=== PATIENT | male | born 1945 | race African-American/Black ===

== ENCOUNTER 2017-11-24 09:25 | Outpatient (CLI) | payer MEDICARE ==
--- NOTE | 2017-11-24 11:49 | ULT ---
HEPATIC ULTRASOUND: COMPARISON: 04/21/07. HISTORY: Sclerosis. TECHNIQUE: Multiplanar, leger scale, and color Doppler images were obtained in a right upper quadrant abdominal u ltrasound. Spectral analysis of the Doppler waveforms and hepatic and splenic vessels were performed . FINDINGS: The liver is nodular and cirrhotic without focal lesions. There is a small amount of fluid adjacent to the liver. No intrahepatic biliary dilatation is seen. Normal directional flow is seen within th e portal veins, hepatic artery, and left hepatic vein. Normal directional flow is seen within the sp lenic vasculature. Gallstones are seen in the gallbladder. There is no gallbladder wall thickening or pericholecystic f luid. The common bile duct is normal measuring 4 mm. The spleen is normal in echogenicity without focal lesion and measures 13.6 cm in length. The visual ized portions of the pancreas are unremarkable. The right kidney is not visualized on this exam. IMPRESSION: 1. Cirrhosis and small ascites. 2. Cholelithiasis. POS: [facility]
== END 2017-11-24 09:26 | disposition home or self-care (01) ==
LOC: EDSEX → ULT 09:25
PROVIDERS: ATTEND Internal Medicine Gastroenterology
DX: K74.60 Unspecified cirrhosis of liver (principal); K70.31 Alcoholic cirrhosis of liver with ascites; K80.20 Calculus of gallbladder without cholecystitis without obstruction
CPT/HCPCS: 76705

== ENCOUNTER 2018-07-07 14:00 | Day surgery (SDC) | payer MEDICARE ==
[2018-07-07] MEDS ORDERED: Fentanyl 100 MCG/2 ML VIAL ONE (14:22)
--- NOTE | 2018-07-07 20:22 | OP ---
DATE OF PROCEDURE: 07/07/2018 PROCEDURE PERFORMED: Esophagogastroduodenoscopy. PREOPERATIVE DIAGNOSIS: Esophageal varices surveillance. PROCEDURE IN DETAIL: Informed consent was obtained from the patient. She was sedated with total int ravenous anesthesia. The bite block was placed and the endoscope was advanced easily to the second p ortion of the duodenum and retroflexion was performed in the stomach. The esophagus had 3 columns of small grade I varices without red signs. There was a small 1-2 cm hiatal hernia present. There was mild portal hypertensive gastropathy in the fundus. The remainder of the stomach was normal. The d uodenum, first and second portions were normal and the pylorus was normal. IMPRESSION: 1. Small grade I varices without red signs, 3 columns. 2. Mild portal hypertensive gastropathy in the fundus. 3. Small 1-2 cm hiatal hernia. 4. Otherwise normal esophagogastroduodenoscopy. RECOMMENDATIONS: 1. Repeat EGD in a year for varices surveillance. 2. Follow up in GI clinic.
== END 2018-07-07 15:35 | disposition home or self-care (01) ==
LOC: SDC 14:00
PROVIDERS: ATTEND Internal Medicine Gastroenterology
PROC: 0DJ08ZZ Inspection of Upper Intestinal Tract, Via Natural or Artificial Opening Endoscopic (ICD-10-PCS; principal; 2018-07-07)
DX: K76.6 Portal hypertension (principal); K31.89 Other diseases of stomach and duodenum; K74.60 Unspecified cirrhosis of liver; I85.10 Secondary esophageal varices without bleeding; K44.9 Diaphragmatic hernia without obstruction or gangrene; I25.10 Atherosclerotic heart disease of native coronary artery without angina pectoris; N18.9 Chronic kidney disease, unspecified; Z79.4 Long term (current) use of insulin; Z79.899 Other long term (current) drug therapy
CPT/HCPCS: J3010

== ENCOUNTER 2018-09-04 09:09 | Outpatient (CLI) | payer MEDICARE ==
[2018-09-04 10:03] LABS: INR-International Normal Ratio 1.1; Prothrombin Time 13.9 SEC (12.0-14.7)
[2018-09-04 10:10] LABS: ALT (SGPT) 12 U/L (8-55); AST (SGOT) 25 U/L (5-34); Albumin 3.2 g/dL (3.4-4.8); Alkaline Phosphatase 200 U/L (40-150); Anion Gap 18 mmol/L (10-20); BUN (Urea Nitrogen) 57 mg/dL (9.8-20.1); Bilirubin, Total 0.7 mg/dL (0.2-1.2); Calc. Creatinine Clearance 0 mL/min (70-130); Calcium 9.1 mg/dL (7.8-10.44); Carbon Dioxide 24 mmol/L (23-31); Chloride 105 mmol/L (98-107); Estimated GFR-MDRD 13; Globulin 4.4 g/dL (2.4-3.5); Glucose 184 mg/dL (80-115); Potassium 4.2 mmol/L (3.5-5.1); Protein, Total 7.6 g/dL (6.0-8.3); Sodium 143 mmol/L (136-145)
--- NOTE | 2018-09-04 11:53 | ULT ---
ULTRASDOUND HEPATIC DOPPLER: HISTORY: Cirrhosis. COMPARISON: Ultrasound of 11/24/2017. FINDINGS: Real-time leger scale, color flow, and spectral analysis of the liver and hepatic vessels was performe d. There is a nodular contour of the liver. Mild coarsened echotexture. Visualized portions of the [place] cre[place] are unremarkable. Hepatic artery and portal vein are patent. Normal directional flow of the portal vein. Normal phasi city of the IVC. Normal phasicity of the hepatic artery. The right kidney measures 10 x 4.3 x 5.6 cm without mass, hydronephrosis, or abnormal calcifications. Normal directional flow within the hepatic veins. IMPRESSION: 1. Cirrhosis with normal directional flow to the vessels. 2. Splenic size upper limits of normal. POS: [facility]
[2018-09-04 12:08] LABS: #Basophils 0.1 thou/uL (0.0-0.2); #Eosinphils 0.1 thou/uL (0.0-0.7); #Lymphocytes 1.3 thou/uL (1.20-3.40); #Monocytes 0.3 thou/uL (0.11-0.59); #Neutrophils 3.4 thou/uL (1.40-6.50); %Basophils 1.3 % (0.0-1.0); %Eosinophils 1.3 % (0.0-10.0); %Lymphocytes 24.8 % (21.0-51.0); %Monocytes 6.3 % (0.0-10.0); %Neutrophils 66.3 % (42.0-75.0); Hemoglobin 9.3 g/dL (12.0-16.0); Mean Corpuscular HGB CONC 33.3 g/dL (32.0-36.0); Mean Corpuscular Hemoglobin 26.2 pg (27.0-31.0); Mean Corpuscular Volume 78.9 fL (78.0-98.0); Mean Platelet Volume 11.8 fL (7.4-10.4); PLT Morphology Comment Appears Decreased; Platelet Count 84 thou/uL (130-400); RBC Distribution Width 13.4 % (11.5-14.5); RBC Morphology Normal; Red Blood Cell (RBC) Count 3.55 mill/uL (4.20-5.40); White Blood Cell (WBC) Count 5.1 thou/uL (4.8-10.8)
== END 2018-09-04 09:10 | disposition home or self-care (01) ==
LOC: SCSULT 09:09
PROVIDERS: ATTEND Internal Medicine Gastroenterology
DX: K70.30 Alcoholic cirrhosis of liver without ascites (principal); K72.90 Hepatic failure, unspecified without coma; I85.00 Esophageal varices without bleeding; D63.1 Anemia in chronic kidney disease; N18.9 Chronic kidney disease, unspecified; R18.8 Other ascites; K74.60 Unspecified cirrhosis of liver
CPT/HCPCS: 36415; 76705; 80053; 85025; 85610

== ENCOUNTER 2019-03-29 11:09 | Outpatient (CLI) | payer MEDICARE ==
--- NOTE | 2019-03-29 11:53 | ULT ---
Hepatic ultrasound with duplex evaluation INDICATION: Cirrhosis of the liver TECHNIQUE: Grayscale, color Doppler and spectral Doppler images were obtained of the liver, gallbladd er, common bile duct, pancreas, right kidney and spleen. COMPARISON: Prior exam dated September 04, 2018. FINDINGS: Liver: No focal hepatic lesion is evident. There is a coarse echotexture of the liver with a nodular contour. Hepatic vasculature: Left hepatic vein: Appropriate flow. Middle hepatic vein: Appropriate flow. Right hepatic vein: Appropriate flow. Hepatic artery: Hepatopedal flow. Main portal vein: Hepatopedal flow. Right portal vein: Hepatopedal flow. Left portal vein: Hepatopedal flow. Splenic artery: Appropriate flow. Splenic vein: Hepatopedal flow. Aorta: Appropriate flow. IVC: Appropriate flow. Gallbladder: The gallbladder is contracted. No sonographic Rios sign is reported. Common bile duct: 4.6 mm. Pancreas: Visualized aspects appear within normal limits. Right kidney: Visualized right kidney demonstrated no focal renal lesion or hydronephrosis Spleen: The spleen measured 12 cm in length. IMPRESSION: 1. No focal hepatic lesion. 2. Cirrhotic morphology of the liver. 3. Appropriate hepatopedal flow.
== END 2019-03-29 11:10 | disposition home or self-care (01) ==
LOC: SCSULT 11:09
PROVIDERS: ATTEND Internal Medicine Gastroenterology
DX: K70.31 Alcoholic cirrhosis of liver with ascites (principal); N18.9 Chronic kidney disease, unspecified; D63.1 Anemia in chronic kidney disease; I85.00 Esophageal varices without bleeding; K72.90 Hepatic failure, unspecified without coma; K31.819 Angiodysplasia of stomach and duodenum without bleeding
CPT/HCPCS: 76705

== ENCOUNTER 2020-05-25 08:16 | Outpatient (CLI) | payer MEDICARE ==
--- NOTE | 2020-05-25 09:23 | ULT ---
Hepatic sonogram with duplex evaluation HISTORY: Cirrhosis. FINDINGS: Echogenic stones with posterior shadowing present within the gallbladder fundus. No gallbla dder wall thickening or pericholecystic fluid. No point tenderness over the gallbladder fossa. Common duct is 0.3 cm. Liver has a heterogeneous echotexture and nodular contour. No focal mass. No free fluid. Spleen is 11.6 cm length. Dilated venous structures are present at the splenic hilum. Good color and spectral Doppler flow within the hepatic and splenic arteries. Portal venous flow is a way from the liver and towards the spleen. Hepatic venous flow is diminished but remains predominantly towards the inferior vena cava. IMPRESSION : Cirrhotic appearance of the liver. Hepatofugal portal venous flow. Other findings of portal venous hy pertension include borderline splenomegaly and splenic varices. Cholelithiasis. No evidence of acute biliary obstruction.
== END 2020-05-25 08:17 | disposition home or self-care (01) ==
LOC: SCSULT 08:16
PROVIDERS: ATTEND Physician Assistant Medical
DX: K70.30 Alcoholic cirrhosis of liver without ascites (principal); K72.90 Hepatic failure, unspecified without coma; I85.10 Secondary esophageal varices without bleeding; N18.9 Chronic kidney disease, unspecified; D63.1 Anemia in chronic kidney disease; R16.1 Splenomegaly, not elsewhere classified; I86.8 Varicose veins of other specified sites; K80.20 Calculus of gallbladder without cholecystitis without obstruction
CPT/HCPCS: 76705; 82043

== ENCOUNTER 2021-02-15 12:47 | Outpatient (CLI) | payer MEDICARE ==
[2021-02-16 11:37] LABS: SARS-CoV-2 PCR by NAA Not Detected (NotDetected)
== END 2021-02-15 12:48 | disposition home or self-care (01) ==
LOC: LABBT 12:47
PROVIDERS: ATTEND Internal Medicine Gastroenterology
DX: Z01.812 Encounter for preprocedural laboratory examination (principal); I85.00 Esophageal varices without bleeding; Z20.822 Contact with and (suspected) exposure to COVID-19
CPT/HCPCS: U0003; U0005; 87635

== ENCOUNTER 2021-02-20 05:56 | Day surgery (SDC) | payer MEDICARE ==
[2021-02-19 14:53] VITALS: BMI 25.8
[2021-02-20 07:32] LABS: Potassium 3.7 mmol/L (3.5-5.1)
[2021-02-20] MEDS ORDERED: PROPOFOL 200 MG/20 ML VIAL ONE (08:28)
[2021-02-20] MEDS ORDERED: Heparin 1,000 UNITS/ML VIAL ONE (10:24)
[2021-02-20 10:26] LABS: #Monocytes 0.3 thou/uL (0.11-0.59); %Basophils 1.4 % (0.0-1.0); %Lymphocytes 30.5 % (21.0-51.0); %Monocytes 7.7 % (0.0-10.0); %Neutrophils 59.5 % (42.0-75.0); Hemoglobin 7.5 g/dL (12.0-16.0); Mean Corpuscular HGB CONC 33.3 g/dL (32.0-36.0); Mean Corpuscular Hemoglobin 27.1 pg (27.0-31.0); Mean Corpuscular Volume 81.3 fL (78.0-98.0); Platelet Count 57 thou/uL (130-400); RBC Distribution Width 16.2 % (11.5-14.5); Red Blood Cell (RBC) Count 2.78 mill/uL (4.20-5.40); White Blood Cell (WBC) Count 3.4 thou/uL (4.8-10.8)
[2021-02-20 14:03] LABS: ALT (SGPT) 16 U/L (8-55); AST (SGOT) 32 U/L (5-34); Albumin 2.6 g/dL (3.4-4.8); Alkaline Phosphatase 147 U/L (40-110); BUN (Urea Nitrogen) 21 mg/dL (9.8-20.1); Calc. Creatinine Clearance 9 mL/min (70-130); Calcium 8.7 mg/dL (7.8-10.44); Carbon Dioxide 24 mmol/L (23-31); Chloride 103 mmol/L (98-107); Globulin 2.8 g/dL (2.4-3.5); Glucose 205 mg/dL (83-110); Potassium 3.8 mmol/L (3.5-5.1); Protein, Total 5.4 g/dL (5.8-8.1); Sodium 139 mmol/L (136-145)
[2021-02-20 14:21] LABS: INR-International Normal Ratio 1.3
[2021-02-20 14:25] LABS: Anion Gap 16 mmol/L (10-20)
== END 2021-02-20 11:00 | disposition home or self-care (01) ==
LOC: SDC 05:56
PROVIDERS: ATTEND Internal Medicine Gastroenterology
PROC: 0DB78ZX Excision of Stomach, Pylorus, Via Natural or Artificial Opening Endoscopic, Diagnostic (ICD-10-PCS; principal; 2021-02-20)
PROC: 0DBM8ZX Excision of Descending Colon, Via Natural or Artificial Opening Endoscopic, Diagnostic (ICD-10-PCS; 2021-02-20)
DX: K31.7 Polyp of stomach and duodenum (principal); D12.4 Benign neoplasm of descending colon; K64.8 Other hemorrhoids; K31.819 Angiodysplasia of stomach and duodenum without bleeding; K74.60 Unspecified cirrhosis of liver; K76.6 Portal hypertension; K31.89 Other diseases of stomach and duodenum; D50.0 Iron deficiency anemia secondary to blood loss (chronic); K72.90 Hepatic failure, unspecified without coma; E78.5 Hyperlipidemia, unspecified; E03.9 Hypothyroidism, unspecified; E11.22 Type 2 diabetes mellitus with diabetic chronic kidney disease; N18.6 End stage renal disease; Z86.010 Personal history of colon polyps; Z79.4 Long term (current) use of insulin; Z79.899 Other long term (current) drug therapy; Z99.2 Dependence on renal dialysis
CPT/HCPCS: 84132; 85025; 85610; 88305; J1644; J2704

== ENCOUNTER 2021-08-24 06:16 | Day surgery (SDC) | payer MEDICARE ==
[2021-08-24 07:53] LABS: #Lymphocytes 0.7 thou/uL (1.20-3.40); #Monocytes 0.4 thou/uL (0.11-0.59); #Neutrophils 1.8 thou/uL (1.40-6.50); %Basophils 0.6 % (0.0-1.0); %Eosinophils 1.1 % (0.0-10.0); %Lymphocytes 24.4 % (21.0-51.0); %Monocytes 12.7 % (0.0-10.0); %Neutrophils 61.2 % (42.0-75.0); Hemoglobin 9.4 g/dL (12.0-16.0); Mean Corpuscular HGB CONC 34.6 g/dL (32.0-36.0); Mean Corpuscular Hemoglobin 28.6 pg (27.0-31.0); Mean Corpuscular Volume 82.7 fL (78.0-98.0); Platelet Count 42 thou/uL (130-400); RBC Distribution Width 16.5 % (11.5-14.5); Red Blood Cell (RBC) Count 3.28 mill/uL (4.20-5.40); White Blood Cell (WBC) Count 2.9 thou/uL (4.8-10.8)
[2021-08-24 08:03] LABS: ALT (SGPT) 18 U/L (8-55); AST (SGOT) 29 U/L (5-34); Albumin 2.4 g/dL (3.4-4.8); Alkaline Phosphatase 263 U/L (40-110); Anion Gap 14 mmol/L (10-20); BUN (Urea Nitrogen) 24 mg/dL (9.8-20.1); Bilirubin, Total 1.4 mg/dL (0.2-1.2); Calc. Creatinine Clearance 0 mL/min (70-130); Calcium 9.7 mg/dL (7.8-10.44); Carbon Dioxide 26 mmol/L (23-31); Chloride 101 mmol/L (98-107); Globulin 3.4 g/dL (2.4-3.5); Glucose 227 mg/dL (83-110); Potassium 3.1 mmol/L (3.5-5.1); Protein, Total 5.8 g/dL (5.8-8.1); Sodium 138 mmol/L (136-145)
[2021-08-24 10:03] LABS: SARS-CoV-2 NAA Rapid Test Not Detected (NotDetected)
[2021-08-24] MEDS ORDERED: ceFAZolin Sodium/D5W 2 GM in Premix Bag 1 BAG IVPB SCH (10:45)
[2021-08-24] MEDS ORDERED: Bupivacaine PF 0.5% 30 ML VIAL ONE (12:06)
[2021-08-24] MEDS ORDERED: Heparin 10,000 UNITS/ 10 ML VIAL ONE (12:06)
[2021-08-24] MEDS ORDERED: Lidocaine 1% w/Epinephrine 1:100K 20 ML VIAL ONE (12:06)
[2021-08-24] MEDS ORDERED: Sodium Chloride 0.9% 20 ML ONE (12:06)
[2021-08-24] MEDS ORDERED: Fentanyl 100 MCG/2 ML VIAL ONE (12:14)
[2021-08-24] MEDS ORDERED: ceFAZolin 2 GM/DEX 5% 100 ML BAG ONE (12:17)
[2021-08-24] MEDS ORDERED: PROPOFOL 200 MG/20 ML VIAL ONE (12:34)
[2021-08-24] MEDS ORDERED: Lidocaine 1% PF 5 ML VIAL ONE (12:34)
[2021-08-24] MEDS ORDERED: Heparin 1,000 UNITS/ML VIAL ONE (15:08)
== END 2021-08-24 16:00 | disposition home or self-care (01) ==
LOC: ERS 06:16 → SDC 11:27
PROVIDERS: ATTEND Specialist
PROC: 0JPT3XZ Removal of Tunneled Vascular Access Device from Trunk Subcutaneous Tissue and Fascia, Percutaneous Approach (ICD-10-PCS; principal; 2021-08-24)
PROC: 0JH63XZ Insertion of Tunneled Vascular Access Device into Chest Subcutaneous Tissue and Fascia, Percutaneous Approach (ICD-10-PCS; 2021-08-24)
PROC: 02HV33Z Insertion of Infusion Device into Superior Vena Cava, Percutaneous Approach (ICD-10-PCS; 2021-08-24)
PROC: B518ZZA Fluoroscopy of Superior Vena Cava, Guidance (ICD-10-PCS; 2021-08-24)
DX: T82.41XA Breakdown (mechanical) of vascular dialysis catheter, initial encounter (principal); I12.0 Hypertensive chronic kidney disease with stage 5 chronic kidney disease or end stage renal disease; E11.22 Type 2 diabetes mellitus with diabetic chronic kidney disease; N18.6 End stage renal disease; K74.60 Unspecified cirrhosis of liver; C22.7 Other specified carcinomas of liver; D69.6 Thrombocytopenia, unspecified; Z20.822 Contact with and (suspected) exposure to COVID-19; Z79.4 Long term (current) use of insulin; Z79.899 Other long term (current) drug therapy
CPT/HCPCS: 36430; 36558; 36589; 71045; 80053; 85025; 86850; 86900; 86901; 86920; 86922; 93970; C1752; P9035; U0002; 36415; J1644; J2704; J3010; S0020

== ENCOUNTER 2021-09-25 10:31 | Outpatient (CLI) | payer MEDICARE | END 2021-09-25 10:32 | disposition home or self-care (01) | LOC: MRI 10:31 | PROVIDERS: ATTEND Radiology Radiation Oncology | DX: C22.0 Liver cell carcinoma (principal); K72.90 Hepatic failure, unspecified without coma; R16.0 Hepatomegaly, not elsewhere classified; I81 Portal vein thrombosis | CPT/HCPCS: 74183 ==

== ENCOUNTER → 2022-04-25 | Day surgery (SDC) | payer MEDICARE ==
[~2022-04-25] MED LIST: Lidocaine 1% PF 5 ML VIAL ONE
[2022-04-25 12:25] LABS: INR-International Normal Ratio 1.8; Prothrombin Time 20.7 sec (12.0-14.7)
[2022-04-25 12:26] LABS: PTT 57.1 sec (22.9-36.1)
== END | disposition home or self-care (01) ==
LOC: ULT 11:42
PROVIDERS: ATTEND Physician Assistant Medical
DX: K70.31 Alcoholic cirrhosis of liver with ascites (principal); C22.0 Liver cell carcinoma; K72.90 Hepatic failure, unspecified without coma; N18.6 End stage renal disease; D63.1 Anemia in chronic kidney disease; Z53.8 Procedure and treatment not carried out for other reasons
CPT/HCPCS: 36415; 76705; 85610; 85730